=== PATIENT | female | born 1955 | race Caucasian/White ===

== ENCOUNTER → 2021-04-25 | Outpatient (CLI) | payer OTHER ==
[~2021-04-25] MED LIST: ADVAIR 250-501 EACH INH; ALPRAZOLAM1 MG PO; CLARITIN10 MG PO; LISINOPRIL5 MG PO; MULTI VITAMIN1 EACH PO; OLANZAPINE15 MG PO; OMEPRAZOLE 20 M20 M1 PO; PAROXETINE HCL30 MG PO; PROAIR HFA8.5 GM INH
[2021-04-25 09:22] LABS: HEMATOCRIT 38.5 % (37.0-47.0); HEMOGLOBIN 12.8 gm/dL (12.0-15.0); MCH 29.8 pg (26.0-34.0); MCHC 33.2 g/dL (28.0-37.0); MCV 89.6 fL (80.0-100.0); RBC 4.3 mil/uL (4.20-5.00); RDW 13.7 % (10.5-14.5); WBC 9.5 thou/uL (4.0-11.0)
[2021-04-25 09:35] LABS: ALBUMIN 3.4 g/dL (3.4-5.0); CALCIUM 8.8 mg/dL (8.5-10.1); CREATININE 1.1 mg/dL (0.6-1.0); POTASSIUM 4.7 mmol/L (3.5-5.1)
[2021-04-25 09:44] LABS: INR 0.9; PROTIME 9.9 Seconds (10.5-12.1)
[2021-04-25 10:02] LABS: URINE BILIRUBIN NEGATIVE (Negative); URINE BLOOD NEGATIVE (Negative); URINE CLARITY CLEAR; URINE COLOR YELLOW; URINE GLUCOSE-RANDOM* NEGATIVE (Negative); URINE KETONES NEGATIVE (Negative); URINE LEUKOCYTES-REFLEX NEGATIVE (Negative); URINE NITRITE-REFLEX NEGATIVE (Negative); URINE PROTEIN (DIPSTICK) NEGATIVE (Negative); URINE SPECIFIC GRAVITY 1.025 (1.005-1.035); URINE UROBILINOGEN 0.2 E.U./dl (0.2-1.0)
--- NOTE | 2021-04-25 10:35 | EKG ---
[place] [address] [facility] [place] [address] ELECTROCARDIOGRAM REPORT Name: KELSEY PRIDE [id number] Admission: 04/25/21 Attend Phys: Matteo Del Castillo MD Discharge: Date of : 57 Report #: [id number] [facility] Test Date: 2021-04-25 Test Time: 09:12:49 Pat Name: KELSEY PRIDE Department: Room: Gender: F Magician/Illusionist: FANTASMA : 1955 Requested By: Matteo Del Castillo Order Number: [id number] : Reginald Noe Measurements Intervals Williamson Rate: 94 P: 43 NC: 149 QRS: 6 QRSD: 74 T: 22 QT: 356 QTc: 446 Interpretive Statements Sinus rhythm Abnormal R-wave progression, early transition Baseline wander in lead(s) II,III,aVF No previous ECG available for comparison Electronically Signed On 04-25-2021 10:35:04 CUSTOMER PROFESSIONAL by Reginald Noe [email or web address] <ELECTRONICALLY SIGNED> By: Reginald Noe MD, LOCATED WITHIN [facility] 04/25/21 1035 D: [id number] 1 Reginald Noe MD, FACC /EPI
== END ==
LOC: PAC 08:28
PROVIDERS: ATTEND Orthopaedic Surgery
DX: M17.11 Unilateral primary osteoarthritis, right knee (principal)

== ENCOUNTER 2021-05-10 06:07 | Observation (INO) | payer OTHER ==
[2021-05-10] VITALS (7 sets, daily range): BP systolic 131–146; BP diastolic 56–86
[~2021-05-10] VITALS: Ht 162.6 cm; Wt 106.4 kg
--- NOTE | ~2021-05-10 | O ---
[facility] [place] [address] OPERATIVE REPORT Name: KELSEY PRIDE Room #: 439-P [facility] M.R.#: [id number] Admission: 05/10/21 Attend Phys: Matteo Del Castillo MD Discharge: Date of : 57 Report #: [id number] THIS REPORT FOR: cc: Ignacio Kapoor MD, Logan F. MD Abraham,Matteo Nassar MD ~ DATE OF SERVICE: 05/10/2021 PREOPERATIVE DIAGNOSIS: Right knee osteoarthritis. POSTOPERATIVE DIAGNOSIS: Right hip osteoarthritis. PROCEDURE: Right total knee arthroplasty using Navio robotic assistance. SURGEON: Matteo Del Castillo MD WHEY DEPARTMENT OPERATOR: Bambi Monroe PA-C. INDICATION FOR WHEY DEPARTMENT OPERATOR: Throughout the case, extensive retraction, manipulation of the knee was required. This is supported by my assistant golf coach. ANESTHESIA: LMA with adductor canal block. IMPLANTS: A [employer] size 4 Journey II BCS Oxinium femur, a size 3 tibia, size 10 polyethylene, size 29 patella. TOURNIQUET TIME: 51 minutes. ESTIMATED BLOOD LOSS: 25 mL. COMPLICATIONS: None. SPECIMENS: None. CONDITION UPON LEAVING THE OR: Stable. INDICATIONS FOR PROCEDURE: The patient is a 65-year-old female with right knee osteoarthritis. She had failed conservative measures for this and after discussion with her, she elected for right total knee arthroplasty. DESCRIPTION OF PROCEDURE: Risks, benefits, alternatives, complications were discussed in detail with the patient including but not limited to risk of anesthesia, risk of damage to nerves, arteries, blood vessels, risk for infection, bleeding, risk for continued knee pain, need for reoperation. Informed consent was obtained from the patient. Right knee was appropriately marked in the preoperative holding area. IV Ancef was given for preoperative [address] [address] OPERATIVE REPORT Name: KELSEY PRIDE Room #: 439-P [facility] M.R.#: [id number] Admission: 05/10/21 Attend Phys: Matteo Del Castillo MD Discharge: Date of : 57 Report #: [id number] antibiotics. She was brought to the operating room and placed in the supine position on the operating table. LMA anesthesia was induced without complication. Tourniquet was placed on the right thigh. Right lower extremity was prepped and draped in normal sterile fashion. Timeout was performed properly identifying the patient and procedure as well as the instrumentation and implants. All in the operating room in agreement. Right lower extremity was exsanguinated, tourniquet was inflated. Tourniquet time was 51 minutes. Standard midline approach to the knee was made with 10 blade through the skin. Dissection was taken down sharply to the fascia. Deep flaps were developed medially and laterally. Fresh 10 blade was used to make a medial parapatellar arthrotomy and the knee was inspected. There was moderate to severe medial compartment osteoarthritis with moderate patellofemoral compartment osteoarthritis. ACL and PCL were removed sharply. Reference pins were placed in the femur and the tibia and the knee was then digitally mapped using the Wizdee robotic system. Intraoperative plan was made. We sized the size 4 femur, the size 3 tibia and a 10 spacer. After acceptance of the intraoperative plan, the distal femoral cut was made with Navio bur. Distal femoral cutting block was pinned in place and chamfer cuts were made. Attention was turned to the tibia. Remainder of the menisci removed with Bovie cautery. Tibial resection guide was pinned in place using Navio for placement and tibial resection was made. Flexion and extension gaps were checked and found to have good balance in flexion and extension both medially and laterally. Tibia was sized, found to be a size 3. A size 3 tibial trial was placed, pinned and punched. Size 4 femoral trial was placed, box cut was made. This was then trialed with a size 10 polyethylene. Size 10 polyethylene demonstrated 1-2 mm laxity medially and laterally throughout range of motion of the knee. A 9 mm of bone was resected from the posterior surface of the patella and a size 29 patellar trial button was placed. Knee was taken through range of motion, found to be stable, found to have good patellar tracking. Trial components were removed. Bone ends were thoroughly irrigated with normal saline. Final size 3 tibia, size 4 Journey II BCS Oxinium femur and a size 29 patella were cemented in place using standard cementation techniques. While the cement cured, a periarticular injection consisting of morphine, ropivacaine, epinephrine, Toradol was placed around the knee joint capsule. After the cement cured, the tourniquet was deflated. Hemostasis was obtained with Bovie cautery. Final size 10 polyethylene was placed. A gram of vancomycin was placed deep in the joint. Fascia was closed with 0 Vicryl. Skin was closed with 2-0 Vicryl, skin staple and a OSEI dressing was applied. The patient tolerated this procedure well and went to recovery room under care of anesthesia postoperatively. By: [id number] Matteo Del Castillo MD /nt
--- NOTE | 2021-05-10 11:15 | NUR ---
ASSUMED CARE OF PT AT 0935 THIS MORNING FROM PACU. PT IS A/OX4 WITH RT KNEE TTL REPLACEMENT. PT WILL BE EVALED BY PHYS THPYvonne AND SYSTEMS ASSESS WITH CARE PLAN COMPLETED BY RN, TAO. MEDS AND TX GIVEN NEEDED AMD SCHEDULED. WILL MONITOR AND NOTE ANY CHANGES.
--- NOTE | 2021-05-10 12:27 | NUR ---
RE-ASSUMED CARE OF PT AT 0700 THIS MORNING. PT IS A/OX4 AND NO CHANGES SINCE REPORT LAST NIGHT. PT IS READY TO GO HOME AND WAITING TO BE EVALED BY PT AND OT. PT IS UP AD ANGELES AND HAS NO ISSUES OR COMPLAINTS. ASSESSMENTS NOTED IN CHART AND OTHERWISE UNREMARKABLE. NO FALL PRECAUTIONS NEEDED. CALL LIGHT AND OTHER NEEDS ARE IN PLACE. WAITING FOR DR. BELTRE FOR DISCHARGE ORDERS SINCE PT IS CLEARED TO GO HOME BY PHYS THPY. MEDS AND TX GIVEN NEEDED AND SCHEDULED. WILL MONITOR AND NOTE ANY CHANGES.
--- NOTE | 2021-05-11 07:36 | NUR ---
ASSUMED PT CARE AT 1900.PT'S HERE T VISIT,SPENT SOME TIME WITH PT.PT'S BROUGHT HER ADVIL INHAER,BUT PT DID NOT HAVE IT ON HER EMAR,GAVE IT TO AM NURSE TO RETURN BACK TO HER .PT UP WITH ASSIST/GB AND WALKER TO THE TOILET,GOOD ENDURANCE NOTED.MICK BREWSTER,OPAL AND POLAR PACK IN PLACE.PT PROGRESSING WELL TOWARDS DC GOALS.REPORT TO AM NURSE.
[2021-05-11 08:12] VITALS: BP 136/52
--- NOTE | 2021-05-11 08:37 | NUR ---
A/O X 4. ROOM AIR. STAND BY. CONT B/B. RIGHT FOREARM PIV D5 1/2 NS @ 100 MLS/HR. RIGHT KNEE SURGERY OSEI, POLAR PACK, TEDS. MORPHINE GIVEN FOR PAIN.
[2021-05-11 10:59] VITALS: BP 136/52
--- NOTE | 2021-05-11 16:44 | NUR ---
obtained walker from [facility] for home. No further needs
== END 2021-05-11 11:47 | disposition home or self-care (01) ==
LOC: OR → 4S 10:51 → OR 15:20 → 4S 18:37
PROVIDERS: ADMIT Orthopaedic Surgery; ATTEND Orthopaedic Surgery
DX: M17.11 Unilateral primary osteoarthritis, right knee (principal); M17.12 Unilateral primary osteoarthritis, left knee; S83.232A Complex tear of medial meniscus, current injury, left knee, initial encounter; I10 Essential (primary) hypertension; J45.909 Unspecified asthma, uncomplicated; F41.9 Anxiety disorder, unspecified; X58.XXXA Exposure to other specified factors, initial encounter; Y92.89 Other specified places as the place of occurrence of the external cause; Y93.89 Activity, other specified
CPT/HCPCS: 27447; 0055T; 50010; 50101; 50415; 50954; 51130; 51225; 51412; 53000; 53078; 53365; 56527; 56528; 57095; 57103; 57110; 57127; 57180; 59024; 62110; 62900; 64042; 70005